=== PATIENT | female | born 1980 | race Caucasian/White ===

== ENCOUNTER 2021-05-30 13:36 | Day surgery (SDC) | payer OTHER ==
[2021-05-30] MEDS ORDERED: Depo-Medrol 40 MG/ML IM ONE (13:37)
[2021-05-30] MEDS ORDERED: Sodium Chloride 0.9% 10 ML FLUSH Syringe IJ ONE (13:37)
[2021-05-30] MEDS ORDERED: Lactated Ringers 1,000 ML IV ONE (14:25)
[2021-05-30] MEDS ORDERED: DIPRIVAN 200 MG/20 ML IV ONE (14:55)
--- NOTE | 2021-05-30 16:34 | XRAY ---
Indication: Left L4-S1 transforaminal MEHDI. Intraoperative fluoroscopy provided for 30 seconds. 5 digital spot image submitted for interpretation demonstrates posterior needle tips projecting over the expected left L4 and L5 nerve roots. Small amount of contrast injected for needle tip placement. Correlate with intraoperative findings/report.
--- NOTE | 2021-05-30 16:49 | XRAY ---
30 seconds fluoroscopy time in surgery for left L4-S1 transforaminal MEHDI.
== END 2021-05-30 15:18 | disposition home or self-care (01) ==
LOC: SDC-PAIN 13:36
PROVIDERS: ATTEND Psychiatry & Neurology Pain Medicine
DX: M54.16 Radiculopathy, lumbar region (principal); Z79.899 Other long term (current) drug therapy
CPT/HCPCS: 64483; 64484; 72100; 77003; 84703; J1030; J2704; Q9966

== ENCOUNTER 2021-09-11 10:24 | Day surgery (SDC) | payer OTHER ==
[2021-09-11] MEDS ORDERED: Sodium Chloride 0.9(Preservative Free) 10 ML IJ ONE (10:25)
[2021-09-11] MEDS ORDERED: Depo-Medrol 40 MG/ML IM ONE (10:25)
[2021-09-11] MEDS ORDERED: Lactated Ringers 1,000 ML IV ONE (12:06)
[2021-09-11] MEDS ORDERED: DIPRIVAN 200 MG/20 ML IV ONE (12:31)
--- NOTE | 2021-09-11 14:02 | XRAY ---
Indication: Left L3-L5 transforaminal MEHDI. Intraoperative fluoroscopy provided for 25 seconds. 3 digital spot images submitted for interpretation demonstrates posterior needle tips projecting over the expected left L3 and L4 nerve roots. Small amount of contrast injected for needle tip placement. Correlate with intraoperative findings/report.
--- NOTE | 2021-09-11 14:41 | XRAY ---
25 seconds fluoroscopy time in surgery for left L3-L5 transforaminal MEHDI.
== END 2021-09-11 12:55 | disposition home or self-care (01) ==
LOC: SDC-PAIN 10:24
PROVIDERS: ATTEND Psychiatry & Neurology Pain Medicine
DX: M54.16 Radiculopathy, lumbar region (principal); Z79.899 Other long term (current) drug therapy
CPT/HCPCS: 64483; 64484; 72100; 77003; 84703; J1030; J2704; Q9966

== ENCOUNTER 2022-01-01 14:07 | Day surgery (SDC) | payer OTHER ==
[2022-01-01] MEDS ORDERED: XYLOCAINE-MPF 1% 5ML SDV IJ ONE (14:08)
[2022-01-01] MEDS ORDERED: DIPRIVAN 200 MG/20 ML IV ONE (17:12)
[2022-01-01] MEDS ORDERED: Lactated Ringers 1,000 ML IV ONE ×3 (17:21→18:17)
[2022-01-01] MEDS ORDERED: BACIGUENT 30 GM ONE (17:33)
--- NOTE | 2022-01-01 19:29 | XRAY ---
Indication: Spinal stimulator trial. Intraoperative fluoroscopy provided for 3 minute 24 seconds. 7 digital spot image submitted for interpretation demonstrates posterior introducer needle tip projecting at L1-L2 interspace. Ultimately insertion of a single epidural lead with the tip terminating approximately T7. Correlate with intraoperative findings/report.
--- NOTE | 2022-01-02 08:28 | XRAY ---
3 minutes and 24 seconds of fluoroscopy was used in surgery for a spinal cord stimulator trial.
== END 2022-01-01 18:25 | disposition home or self-care (01) ==
LOC: SDC-PAIN 14:07
PROVIDERS: ATTEND Psychiatry & Neurology Pain Medicine
DX: M54.16 Radiculopathy, lumbar region (principal); Z79.899 Other long term (current) drug therapy
CPT/HCPCS: 63650; 72100; 77002; 81025; C1778; 01941; J2704; A9270-GY

== ENCOUNTER 2023-02-11 10:00 | Day surgery (SDC) | payer OTHER ==
[2023-02-11] MEDS ORDERED: LIDOCAINE HCL 2% 100 MG/5 ML IJ ONE (10:01)
[2023-02-11] MEDS ORDERED: Depo-Medrol 40 MG/ML IM ONE (10:01)
[2023-02-11 10:43] LABS: HCG URINE TEST NEGATIVE (NEGATIVE)
[2023-02-11] MEDS ORDERED: DIPRIVAN 200 MG/20 ML IV ONE ×2 (13:00→13:10)
[2023-02-11] MEDS ORDERED: Xylocaine-Mpf 2% 5 Ml Vial ONE (13:02)
--- NOTE | 2023-02-11 14:43 | XRAY ---
Indication: Bilateral L4-S1 MBB. Intraoperative fluoroscopy provided for 11 seconds. Single digital spot image submitted for interpretation demonstrates posterior needle tips projecting over the expected left and right L4-S1 nerve roots. Correlate with intraoperative findings/report.
--- NOTE | 2023-02-11 17:05 | XRAY ---
11 seconds of fluoroscopy was used in surgery for a bilateral L4-S1 MBB.
== END 2023-02-11 13:30 | disposition home or self-care (01) ==
LOC: SDC-PAIN 10:00
PROVIDERS: ATTEND Psychiatry & Neurology Pain Medicine
DX: M47.816 Spondylosis without myelopathy or radiculopathy, lumbar region (principal); Z79.899 Other long term (current) drug therapy
CPT/HCPCS: 64493; 64494; 72020; 77002; 81025; J1030; J2704

== ENCOUNTER 2023-04-15 14:00 | Day surgery (SDC) | payer OTHER ==
[2023-04-15] MEDS ORDERED: BUPIVACAINE 0.5% VIAL IJ ONE (14:01)
[2023-04-15] MEDS ORDERED: Depo-Medrol 40 MG/ML IM ONE (14:01)
[2023-04-15] MEDS ORDERED: LIDOCAINE HCL 1% 50 MG/5 ML VL PF IJ ONE (14:01)
[2023-04-15 15:20] LABS: HCG URINE TEST NEGATIVE (NEGATIVE)
[2023-04-15] MEDS ORDERED: Lactated Ringers 1,000 ML IV ONE (16:31)
[2023-04-15] MEDS ORDERED: DIPRIVAN 200 MG/20 ML IV ONE ×4 (16:32→17:49)
[2023-04-15] MEDS ORDERED: Reglan 10 MG/2 ML ONE (16:50)
[2023-04-15] MEDS ORDERED: SOD CITRATE-CITRIC ACID SOLN ONE (17:00)
[2023-04-15] MEDS ORDERED: Pepcid 20 MG VIAL IV ONE (17:03)
--- NOTE | 2023-04-15 19:27 | XRAY ---
Indication: Right L4-S1 MEHDI. Intraoperative fluoroscopy provided for 36 seconds. 7 digital spot image submitted for interpretation demonstrates posterior needle tips projecting over the expected right L4-S1 nerve roots. Correlate with intraoperative findings/report.
--- NOTE | 2023-04-16 09:10 | XRAY ---
36 seconds of fluoroscopy was used in surgery for a right L4-S1 RFA.
== END 2023-04-15 18:11 | disposition home or self-care (01) ==
LOC: SDC-PAIN 14:00
PROVIDERS: ATTEND Psychiatry & Neurology Pain Medicine
DX: M47.816 Spondylosis without myelopathy or radiculopathy, lumbar region (principal); Z79.899 Other long term (current) drug therapy
CPT/HCPCS: 64635; 64636; 72100; 77002; 81025; J1030; J2001; J2704; A9270-GY

== ENCOUNTER 2023-04-22 11:06 | Day surgery (SDC) | payer OTHER ==
[2023-04-22] MEDS ORDERED: LIDOCAINE HCL 1% 50 MG/5 ML VL PF IJ ONE (11:07)
[2023-04-22] MEDS ORDERED: Depo-Medrol 40 MG/ML IM ONE (11:07)
[2023-04-22] MEDS ORDERED: BUPIVACAINE 0.5% VIAL IJ ONE (11:07)
[2023-04-22 12:42] LABS: HCG URINE TEST NEGATIVE (NEGATIVE)
[2023-04-22] MEDS ORDERED: Pepcid 20 MG VIAL IV ONE (12:55)
[2023-04-22] MEDS ORDERED: Reglan 10 MG/2 ML ONE (12:55)
[2023-04-22] MEDS ORDERED: DIPRIVAN 200 MG/20 ML IV ONE ×2 (14:07→14:15)
[2023-04-22] MEDS ORDERED: Xylocaine-Mpf 2% 5 Ml Vial ONE (14:09)
[2023-04-22] MEDS ORDERED: Lactated Ringers 1,000 ML IV ONE (14:51)
--- NOTE | 2023-04-22 16:55 | XRAY ---
Indication: Left L4-S1 RFA. Intraoperative fluoroscopy provided for 29 seconds. 5 digital spot images submitted for interpretation demonstrates posterior needle tips projecting over the expected left L4-S1 nerve roots. Correlate with intraoperative findings/report.
--- NOTE | 2023-04-22 17:06 | XRAY ---
29 seconds of fluoroscopy was used in surgery for a left L4-S1 RFA.
== END 2023-04-22 14:40 | disposition home or self-care (01) ==
LOC: SDC-PAIN 11:06
PROVIDERS: ATTEND Psychiatry & Neurology Pain Medicine
DX: M47.816 Spondylosis without myelopathy or radiculopathy, lumbar region (principal); Z79.899 Other long term (current) drug therapy
CPT/HCPCS: 64635; 64636; 72100; 77002; 81025; J1030; J2001; J2704

== ENCOUNTER 2023-07-23 12:10 | Day surgery (SDC) | payer OTHER ==
[2023-07-23] MEDS ORDERED: Depo-Medrol 40 MG/ML IM ONE (12:11)
[2023-07-23] MEDS ORDERED: Pepcid 20 MG VIAL IV ONE (12:11)
[2023-07-23] MEDS ORDERED: Reglan 10 MG/2 ML IV ONE (12:11)
[2023-07-23] MEDS ORDERED: BUPIVACAINE 0.5% VIAL IJ ONE (12:11)
[2023-07-23 12:23] LABS: HCG URINE TEST NEGATIVE (NEGATIVE)
[2023-07-23] MEDS ORDERED: DIPRIVAN 200 MG/20 ML IV ONE ×2 (13:29→13:47)
[2023-07-23] MEDS ORDERED: Versed 2 MG/2 ML Injection ONE (13:31)
[2023-07-23] MEDS ORDERED: Lactated Ringers 1,000 ML IV ONE (14:35)
--- NOTE | 2023-07-23 14:52 | XRAY ---
Indication: Bilateral SI joint injection. Intraoperative fluoroscopy provided for 18 seconds. 4 digital spot image submitted for interpretation demonstrates posterior needle tip projecting over the left and right SI joint. Small amount of contrast injected for needle tip placement. Correlate with intraoperative findings/report.
--- NOTE | 2023-07-23 15:10 | XRAY ---
18 seconds of fluoroscopy was used in surgery for a bilateral sacroiliac joint injection.
== END 2023-07-23 14:12 | disposition home or self-care (01) ==
LOC: SDC-PAIN 12:10
PROVIDERS: ATTEND Psychiatry & Neurology Pain Medicine
DX: M46.1 Sacroiliitis, not elsewhere classified (principal)
CPT/HCPCS: 01992; 27096; 72202; 77002; 81025; G0260; J1030; J2250; J2704